=== PATIENT | female | born 1950 | race Caucasian/White ===

== ENCOUNTER → 2019-03-27 | Outpatient (CLI) | payer MEDICARE, OTHER ==
[~2019-03-27] MED LIST: ACYCLOVIR; CIPROFLOXACIN250 M2 OR; CRESTOR10 MG PO; ENALAPRIL MALEA10 M1 PO; NORCO 5-325 TA1 EACH PO; SYNTHROID150 MCG PO
== END ==
LOC: M.ULTRA 10:37
DX: M79.661 Pain in right lower leg (principal); M79.89 Other specified soft tissue disorders; M25.421 Effusion, right elbow